=== PATIENT | female | born 1960 | race Caucasian/White ===

== ENCOUNTER 2020-09-17 09:43 | Outpatient (CLI) | payer OTHER, SELFPAY ==
--- NOTE | ~2020-09-17 | MM_ITS ---
EXAMINATION: MM screening dayna BI w ryley HISTORY: Screening TECHNIQUE: Craniocaudal and mediolateral oblique 3-D tomosynthesis images were obtained and synthetic 2-D images were generated. CAD analysis was submitted and interpreted. COMPARISON: Comparison to multiple prior studies sequentially, with oldest reviewed study dated 03/07. BREAST PARENCHYMAL COMPOSITION: There are scattered areas of fibroglandular density. FINDINGS: There is no evidence of suspicious mass, calcification, or architectural distortion to sugg est malignancy in either breast. There has been no suspicious interval change. IMPRESSION: 1. No mammographic evidence of malignancy. 2. Recommend routine screening mammography in one year. BI-RADS Category 1: Negative Reviewed, dictated and finalized at location A. [employer]
== END 2020-09-17 09:44 | disposition home or self-care (01) ==
LOC: ANHIMG 09:46
PROVIDERS: PCP Family Medicine; Visit Provider Nurse Practitioner
DX: Z12.31 Encounter for screening mammogram for malignant neoplasm of breast (principal)
CPT/HCPCS: 77063; 77067

== ENCOUNTER 2021-02-12 14:06 | Outpatient (CLI) | payer OTHER, SELFPAY ==
--- NOTE | ~2021-02-12 | DEXA_ITS ---
Bone Density Report Name: Yesy Ayon Age: 60 Sex: Female Ethnicity: White Date of : 1960 Indication: osteopenia; height loss; Referring Provider: Austin, Tanvi Study: Bone densitometry was performed. Exam Date: February 12, 2021 Accession number: [id number] Bone Density: Region BMD T-score Z-score Classification AP Spine (L1-L4) 0.866 -1.6 -0.1 Osteopenia Femoral Neck (Left) 0.743 -1.0 0.4 Normal Total Hip (Left) 0.871 -0.6 0.5 Normal Total Hip Bilateral Avg 0.869 -0.6 0.5 Normal Femoral Neck (Right) 0.741 -1.0 0.4 Normal Total Hip (Right) 0.866 -0.6 0.4 Normal World Health Organization criteria for BMD impression classify patients as: Normal (T-score at or above -1.0), Osteopenia (T-score between -1.0 and -2.5), or Osteoporosis (T-score at or below -2.5). 10-year Fracture Risk(1): Major Osteoporotic Fracture 7.3% Hip Fracture 0.4% Reported Risk Factors: [place] (), Neck BMD=0.741, BMI=29.3 (1) FRAX(R) Version 3.08. Fracture probability calculated for an untreated patient. Fracture probability may be lower if the patient has received treatment. Previous Exams: Region Exam Age BMD T-score BMD Change BMD Change Date g/cm2 vs Baseline vs Previous AP Spine(L1-L4) 02/12/2021 60 0.866 -1.6 -0.077(-8.2%)# 0.009(1.0%) 12/08/2018 58 0.857 -1.7 -0.085(-9.1%)# -0.034(-3.8%)* 09/09/2016 56 0.891 -1.4 -0.052(-5.5%)# -0.052(-5.5%)# 06/30/2012 52 0.943 -0.9 Total Hip(Left) 02/12/2021 60 0.871 -0.6 -0.050(-5.4%)# -0.028(-3.1%)* 12/08/2018 58 0.899 -0.4 -0.022(-2.4%)# -0.011(-1.2%) 09/09/2016 56 0.910 -0.3 -0.011(-1.2%)# -0.011(-1.2%)# 06/30/2012 52 0.921 -0.2 Total Hip(Right) 02/12/2021 60 0.866 -0.6 -0.023(-2.5%)# -0.102(-10.5%) 12/08/2018 58 0.968 0.2 0.079(8.9%)# 0.091(10.3%)* 09/09/2016 56 0.877 -0.5 -0.011(-1.3%)# -0.011(-1.3%)# 06/30/2012 52 0.889 -0.4 *Denotes significance at 95% confidence level, LSC for AP Spine = 0.022 g/cm2, LSC for Total Hip = 0.027 g/cm2 Clinical Information Provided by Patient: Has used the following medications: Vitamin D, Calcium Patient maximum height was 63 No regular weight bearing exercise Onset of menses at age 10 Number of children 2 Impression: The patient has low bone mass, based on the Total Spine T-score. The patient has an estimated ten-year risk of hip fracture of 0.4% and an estimated ten-yea
== END 2021-02-12 14:07 | disposition home or self-care (01) ==
LOC: ANHIMG 14:08
PROVIDERS: PCP Physician Assistant; Visit Provider Nurse Practitioner
DX: M85.88 Other specified disorders of bone density and structure, other site (principal)
CPT/HCPCS: 77080